=== PATIENT | female | born 1955 | race Caucasian/White ===

== ENCOUNTER 2016-07-11 11:16 | Day surgery (SDC) | payer MEDICAID, MEDICARE ==
[~2016-07-11] VITALS: Ht 160 cm; Wt 99.0 kg
[~2016-07-11 11:16] MED LIST: ASPI-973 PO; ATEN25TA PO; CHOL500050 PO; GABA-502 PO; LEVO750T39 PO; LOSA50TA37 PO; ONDA4TAB9 PO; OXYC-474 PO; RANI150C4 PO; Sodium Chloride LOK Flush 10 mL Syringe IV PRN; fentaNYL-PF 50 mCg/mL 2 mL Inj IVPUSH PRN
[2016-07-11 11:34] VITALS: BP 121/72; PULSE 65; RESP 14; O2SAT 98
[2016-07-11] MEDS: 0.9% Sodium Chloride 1,000 ML IV SCH ×2 (12:40→12:49)
--- NOTE | 2016-07-11 12:54 | PCM.ENDCOL ---
Colonoscopy Physician Clovis Guardado MD Indication for Procedure Screening Pre Procedure Diagnosis: Screening Post Procedure Dx & Findings: Polyp hemorrhoids and diverticuli Procedure Colonoscopy PROCEDURE IN DETAIL: Prep adequate Withdrawal time 11 minutes After unremarkable rectal examination the Olympus video colonoscope was inserted patient's anal canal and was advanced to cecum. Landmarks were identified including the ileocecal valve and appendiceal orifice. Scope was withdrawn systematically. Visualized colonic mucosa showed healthy shiny mucosa with normal healthy-appearing vasculature. In the descending colon there were total of 3 polyps. They were about 2-3 mm in size. These were all resected completely using cold snare. In the sigmoid colon, there were couple of small diverticuli. In the rectum retroflexion was done which showed hemorrhoids. Anal canal was inspected carefully on the way out and hemorrhoids noted. Impression Polyp 3 status post complete removal Diverticuli Hemorrhoids Recommendation Repeat colonoscopy 3 years Diverticular diet Presedation Assessment Risks and Benefits Informed consent was obtained from the patient after all risks and benefits including but not limited to drug reaction, infection, pain, bleeding, perforation, as well as alternatives were discussed. Patient monitoring Continuous pulse oximetry, cardiac monitoring, blood pressure monitoring, IV access, and oxygen at 2L per nasal cannula. Periprocedural Fentanyl: Fentanyl 100mcg Incrementally Midazolam: Midazolam 5mg Incrementally Complications There were no periprocedural complications identified. Post Procedure Plan Post Procedure Recommendations 1. Restrict activities today. 2. Resume normal activities in the morning. 3. Resume medications. 4. Patient informed of normal post procedure side effects as bloating, drowsiness, blood streaking in the stool. 5. average risk CRCS. If colon polyps come back as: -Hyperplastic- can repeat colonoscopy in 10 years -Tubular adenoma- repeat colonoscopy in 5 years -Tubulovillous/villous adenoma- repeat colonoscopy in 3 years -If any dysplasia- return to clinic as soon as possible 6. Please don't hesitate to call me with any questions. Clovis Guardado MD Jul 11, 2016 12:54
[2016-07-11 12:55] VITALS: BP 90/54; PULSE 66; RESP 16; O2SAT 93
[2016-07-11 13:05] VITALS: BP 87/46; PULSE 65; RESP 14; O2SAT 94
[2016-07-11 13:10] VITALS: BP 97/49; PULSE 70; RESP 16; O2SAT 96
--- NOTE | 2016-07-13 13:36 | PATH ---
SURGICAL PATHOLOGY Attending Physician:Clovis Guardado M.D. CASE STATUS: Signed Out PATIENT NAME: DOUG PETERSON PID: [id number] : 1955 DATE COLLECTED:07/11/2016 20:30 SPECIMEN: Colon, Biopsy CLINICAL HISTORY: 1). DESCENDING COLON POLYPS X3 FINAL DIAGNOSIS: 1.DESCENDING COLON POLYPS: POLYPOID-SHAPED FRAGMENTS OF COLON MUCOSA ASSOCIATED WITH PROMINENT LYMPHOID AGGREGATES. Negative for dysplasia and malignancy. ICD10 code K63.5 GROSS DESCRIPTION: The specimen is received in one formalin filled container labeled with the patient's name, sublabeled "descending colon polyps x3" and consists of 3 portions of tissue which aggregate to 0.6 x 0.6 x 0.4 CM. The specimen is entirely submitted in one cassette. 07/11/2016 [facility] MICRO DESCRIPTION: See diagnosis. ICD-9 CODES: CPT CODES: 1: 11077 Electronically Signed Out Domenico Wilcox MD [facility] [address], [place] [address] Technical component performed at [facility], [facility] [address], [address]
== END 2016-07-11 23:59 | disposition home or self-care (01) ==
LOC: END 11:16
PROVIDERS: ATTEND Internal Medicine
DX: Z12.11 Encounter for screening for malignant neoplasm of colon (principal); K63.5 Polyp of colon; K64.9 Unspecified hemorrhoids; K57.30 Diverticulosis of large intestine without perforation or abscess without bleeding; R79.89 Other specified abnormal findings of blood chemistry; E78.5 Hyperlipidemia, unspecified; K21.9 Gastro-esophageal reflux disease without esophagitis; M54.2 Cervicalgia; Z79.82 Long term (current) use of aspirin
CPT/HCPCS: 45385; G0500; J2250; J3010; J7030